=== PATIENT | female | born 1990 | race African-American/Black ===

== ENCOUNTER 2016-10-16 13:01 | Emergency (ER) | payer MEDICAID, OTHER ==
[~2016-10-16] VITALS: Ht 170.2 cm; Wt 76.2 kg
[~2016-10-16 13:01] MED LIST: soma; tylenol
[2016-10-16 14:08] VITALS: BP 123/79
[2016-10-16] MEDS ORDERED: ONDANSETRON 4MG ODT PO ONE (15:45)
[2016-10-16] MEDS ORDERED: IBUPROFEN 400MG TABLET PO ONE (15:45)
== END 2016-10-16 15:45 | disposition home or self-care (01) ==
LOC: ER 13:25
DX: F41.9 Anxiety disorder, unspecified (principal); R07.89 Other chest pain; F17.210 Nicotine dependence, cigarettes, uncomplicated
CPT/HCPCS: 71010; 93005; 99284

== ENCOUNTER 2020-04-12 11:40 | Emergency (ER) | payer MEDICAID, OTHER ==
[~2020-04-12] VITALS: Ht 172.7 cm; Wt 81.0 kg
[2020-04-12 13:11] LABS: BASOPHILS % 0.4 % (0.0-2.0); HEMOGLOBIN. 12.7 g/dL (12.0-16.0); LYMPHOCYTES % 16.5 % (20.0-50.0); MEAN CORPUSCULAR HEMOGLOBIN 28.6 pg (28.0-32.0); MEAN CORPUSCULAR VOLUME 87.8 fL (81.0-99.0); MEAN PLATELET VOLUME 8.8 fl (7.4-10.4); MONOCYTES % 3.6 % (2.0-8.0); NEUTROPHILS % 78.5 % (40.0-76.0); PLATELET 196 x1000/uL (130-400); RED BLOOD CELL COUNT 4.44 mill/uL (4.2-5.4); RED CELL DISTRIBUTION WIDTH 13.7 % (11.6-14.6)
[2020-04-12 13:27] LABS: CHLORIDE 109 mEq/L (98-107)
[2020-04-12 14:45] VITALS: BP 11/58
== END 2020-04-12 17:00 | disposition home or self-care (01) ==
LOC: ER 11:40
DX: O26.892 Other specified pregnancy related conditions, second trimester (principal); R55 Syncope and collapse; Z3A.16 16 weeks gestation of pregnancy
CPT/HCPCS: 36415; 76805; 80048; 85025; 93005; 99285

== ENCOUNTER 2020-09-16 15:04 | Observation (INO) | payer MEDICAID ==
[~2020-09-16] VITALS: Ht 170.2 cm; Wt 89.4 kg
== END 2020-09-16 16:15 | disposition home or self-care (01) ==
LOC: 8 EST LDRP 15:04
PROVIDERS: ADMIT Obstetrics & Gynecology; ATTEND Obstetrics & Gynecology
DX: O36.8130 Decreased fetal movements, third trimester, not applicable or unspecified (principal); O42.92 Full-term premature rupture of membranes, unspecified as to length of time between rupture and onset of labor; Z3A.38 38 weeks gestation of pregnancy
CPT/HCPCS: 59025; G0378; 99281

== ENCOUNTER 2025-05-18 00:39 | Emergency (ER) | payer BC, MEDICAID ==
[~2025-05-18] VITALS: Ht 170.2 cm; Wt 99.2 kg
[2025-05-18 00:44] VITALS: O2SAT 100
[2025-05-18 00:46] VITALS: BP 114/59; PULSE 72; RESP 12; TEMP 36.9; O2SAT 100
[2025-05-18] MEDS: KETOROLAC 15MG/ML VIAL IM ONE (02:28)
[2025-05-18] MEDS ORDERED: NAPR-1176 MT (02:49)
[2025-05-18] MEDS ORDERED: LIDO-53 TP (02:49)
== END 2025-05-18 03:35 | disposition home or self-care (01) ==
LOC: ER 00:39
DX: M25.572 Pain in left ankle and joints of left foot (principal); Z79.1 Long term (current) use of non-steroidal anti-inflammatories (NSAID); X50.1XXA Overexertion from prolonged static or awkward postures, initial encounter; Y93.89 Activity, other specified; Y92.89 Other specified places as the place of occurrence of the external cause; Y99.8 Other external cause status
CPT/HCPCS: 99284; 81025; 73610; 73630; 96372; J1885; A6449